=== PATIENT | male | born 1975 | race African-American/Black ===

== ENCOUNTER 2019-12-20 08:13 | Inpatient (IN) ==
[2019-12-20] MEDS ORDERED: DIPH/TET/ACEL PERT BOOSTER VACCINE 0.5 ML VIAL IM ONE (08:29)
[2019-12-20] MEDS ORDERED: HYDROmorphone 2 MG/1 ML VIAL IV STA (08:29)
[2019-12-20] MEDS ORDERED: LACTATED RINGERS 1,000 ML IV STA (08:29)
[2019-12-20] MEDS ORDERED: ONDANSETRON 4 MG/2 ML VIAL IV STA (08:29)
[2019-12-20 08:43] LABS: Apearance,Urine CLEAR (Clear); Basophils # 0.1 10*3/uL (0.0-0.2); Basophils % 0.7 % (0.0-0.8); Bilirubin,Urine Negative (Negative); Blood, Urine Moderate mg/dL (Negative); Eosinophils # 0.1 10*3/uL (0.0-0.87); Eosinophils % 0.8 % (0.00-10.9); Glucose,Urine (UA) >=500 mg/dL (Negative); Hematocrit 47.6 VOL% (42.0-52.0); Hemoglobin 15.4 GM/DL (14.0-18.0); Immature Granulocytes % 0.6 %; Immature Granulocytes Absolute 0.04 #; Ketones,Urine 20 mg/dL (Negative); Lymphocytes # 1.4 10*3/uL (1.4-4.0); Lymphocytes % 19.3 % (21.2-54.2); Mean Corpuscular HGB Conc 32.4 GM/DL (32-36); Mean Platelet Volume 10.6 FL (9.6-12.0); Monocytes % 10.2 % (1.7-12.7); Mucus,Urine Occasional /LPF (Occasional); Neutrophils % 68.4 % (38.7-73.9); Nitrite,Urine Negative (Negative); Platelet Count 168 T/CUMM (130-400); Protein,Urine 100 MG/DL; RBC,Urine 16 /HPF (0-4); Red Blood Count 5.35 MC/CUMM (3.8-5.5); Red Cell Distribution Width 13.2 % (9.3-17.3); Squamous Epithelial Cell,Urine Occasional /HPF (0-10); Urine Color Yellow (Yellow); Urine Specific Gravity 1.028 (1.001-1.035); WBC,Urine <1 /HPF (0-6); White Blood Count 7.2 T/CUMM (4-12)
[2019-12-20 08:45] LABS: INR 0.9; Partial Thromboplastin Time < 21.0 SECS (20.8-36.0)
[2019-12-20 08:49] LABS: ABG Base Excess -0.4 MMOL/L (-2.5-2.5); ABG HCO3 24.1 MMOL/L (20-26); ABG Oxygen Saturation 98.8 % (95-100); ABG TCO2 15.9 MMOL/L (23-27); Allen Test Positive
[2019-12-20 08:51] LABS: Barbiturates Screen,Urine Negative (Negative); Benzodiazepines Screen,Urine Negative (Negative); Cannabinoid Screen,Urine Negative (Negative); Opiate Screen,Urine Positive (Negative); Phencyclidine Screen,Urine Negative (Negative)
[2019-12-20 08:52] LABS: ABG PCO2 19.7 MM HG (35-48); ABG PH 7.591 (7.35-7.45)
[2019-12-20 08:54] LABS: Alanine Aminotransferase 52 U/L (16-61); Alkaline Phosphatase 72 U/L (45-117); Amylase 70 U/L (25-115); Aspartate Amino Transferase 70 U/L (0-37); Blood Urea Nitrogen 11 MG/DL (7-18); Estimated Glom Filtration Rate 107 ML/MIN; Glucose 250 MG/DL (74-106); Osmolality,Calculated 276.1 MOS/KG (273-304); Total Protein 7.9 G/DL (6.4-8.3)
[2019-12-20] MEDS ORDERED: propofoL 200 MG/20 ML VIAL IV ONE ×2 (09:23→19:03)
[2019-12-20] MEDS ORDERED: SODIUM CHLORIDE 0.9% 1,000 ML IV SCH (12:18)
[2019-12-20] MEDS ORDERED: MAGNESIUM HYDROXIDE SUSP 30 ML UDCUP PO PRN (12:18)
[2019-12-20] MEDS ORDERED: GLUCAGON 1 MG VIAL IM PRN (12:31)
[2019-12-20] MEDS ORDERED: DEXTROSE 10% 250 ML BAG IV PRN (12:31)
[2019-12-20] MEDS ORDERED: LACTATED RINGERS 1,000 ML IV SCH (13:00)
[2019-12-20 13:59] LABS: Albumin 3.5 G/DL (3.4-5.0); Bilirubin,Total 0.6 MG/DL (0.2-1.0); Calcium 8.6 MG/DL (8.5-10.1); Total Protein 6.7 G/DL (6.4-8.3)
[2019-12-20] MEDS ORDERED: BACITRACIN OINT 0.9 GM PACK TOP ONE (14:22)
[2019-12-20] MEDS ORDERED: ceFAZolin 2,000 MG in PREMIX 1 EACH IV ONE (15:08)
[2019-12-20] MEDS ORDERED: diphenhydrAMINE CAP 25 MG CAPSULE PO PRN (15:48)
[2019-12-20] MEDS ORDERED: ONDANSETRON 4 MG/2 ML VIAL IV PRN (15:48)
[2019-12-20] MEDS ORDERED: ceFAZolin 1,000 MG VIAL ONE (16:17)
[2019-12-20] MEDS ORDERED: SUFentanil 50 MCG/ML AMP ONE ×2 (16:20→19:04)
[2019-12-20] MEDS ORDERED: LIDOCAINE 2% 5 ML VIAL ONE (19:03)
[2019-12-20] MEDS ORDERED: MIDAZOLAM 2 MG/2 ML VIAL ONE (19:04)
[2019-12-20] MEDS ORDERED: DEXAMETHASONE 4 MG/1 ML VIAL ONE (19:04)
[2019-12-20] MEDS ORDERED: ONDANSETRON 4 MG/2 ML VIAL ONE (19:04)
[2019-12-20] MEDS ORDERED: ROCURONIUM 100 MG/10 ML VIAL IV ONE (19:05)
[2019-12-20] MEDS ORDERED: METOPROLOL TARTRATE 5 MG/5 ML VIAL IV ONE (19:05)
[2019-12-20] MEDS ORDERED: LACTATED RINGERS 2,000 ML IV ONE (19:05)
[2019-12-20] MEDS ORDERED: ESMOLOL 100 MG/10 ML VIAL IV ONE (19:05)
[2019-12-20] MEDS ORDERED: GLYCOPYRROLATE 0.4 MG/2 ML VIAL ONE (19:05)
[2019-12-20] MEDS ORDERED: NEOSTIGMINE 10 MG/10 ML VIAL ONE (19:05)
[2019-12-20] MEDS: LACTATED RINGERS 1,000 ML IV SCH (20:03)
[2019-12-20] MEDS: MORPHINE 4 MG/1 ML VIAL IV PRN (22:58)
[2019-12-20] MEDS: ceFAZolin 2,000 MG in PREMIX 1 EACH IV SCH (23:33)
[2019-12-21] MEDS: LACTATED RINGERS 1,000 ML IV SCH ×3 (04:16→17:40)
[2019-12-21] MEDS: MORPHINE 4 MG/1 ML VIAL IV PRN ×4 (04:50→13:27)
[2019-12-21 05:34] LABS: Basophils % 0.2 % (0.0-0.8); Hematocrit 40.7 VOL% (42.0-52.0); Hemoglobin 13.5 GM/DL (14.0-18.0); Immature Granulocytes % 0.5 %; Immature Granulocytes Absolute 0.06 #; Lymphocytes # 1.1 10*3/uL (1.4-4.0); Mean Corpuscular HGB Conc 33.2 GM/DL (32-36); Mean Corpuscular Volume 89.5 FL (87-102); Mean Platelet Volume 11.3 FL (9.6-12.0); Monocytes % 9.5 % (1.7-12.7); Neutrophils % 80.8 % (38.7-73.9); Platelet Count 189 T/CUMM (130-400); Red Blood Count 4.55 MC/CUMM (3.8-5.5); Red Cell Distribution Width 13.4 % (9.3-17.3); White Blood Count 11.8 T/CUMM (4-12)
[2019-12-21 05:56] LABS: Calcium 8.9 MG/DL (8.5-10.1); Osmolality,Calculated 275.1 MOS/KG (273-304)
[2019-12-21] MEDS: ceFAZolin 2,000 MG in PREMIX 1 EACH IV SCH (06:20)
[2019-12-21] MEDS: metFORMIN 500 MG TABLET PO SCH ×2 (08:41→20:31)
[2019-12-21] MEDS: LOSARTAN 50 MG TABLET PO SCH (08:42)
[2019-12-21] MEDS: INSULIN LISPRO 100 UNIT/ML SUBCUT SCH ×3 (08:43→19:00)
[2019-12-21] MEDS: hydrALAZINE 20 MG/1 ML VIAL IV PRN ×2 (08:46→13:40)
[2019-12-21] MEDS: FONDAPARINUX 2.5 MG/0.5 ML SYRINGE SUBCUT SCH (10:05)
[2019-12-21] MEDS: atenoloL 25 MG TABLET PO SCH ×2 (14:30→20:31)
[2019-12-21] MEDS ORDERED: MORPHINE 4 MG/1 ML VIAL IV PRN ×2 (16:20→16:25)
[2019-12-21] MEDS ORDERED: INSULIN GLARGINE 100 UNIT/ML SUBCUT SCH (21:00)
[2019-12-22 04:32] LABS: Basophils % 0.3 % (0.0-0.8); Eosinophils % 0.2 % (0.00-10.9); Hematocrit 39.4 VOL% (42.0-52.0); Hemoglobin 13.1 GM/DL (14.0-18.0); Immature Granulocytes % 0.6 %; Immature Granulocytes Absolute 0.07 #; Lymphocytes # 1.3 10*3/uL (1.4-4.0); Lymphocytes % 11.8 % (21.2-54.2); Mean Corpuscular HGB Conc 33.2 GM/DL (32-36); Mean Corpuscular Volume 88.9 FL (87-102); Mean Platelet Volume 11.1 FL (9.6-12.0); Monocytes % 13.2 % (1.7-12.7); Neutrophils % 73.9 % (38.7-73.9); Platelet Count 183 T/CUMM (130-400); Red Blood Count 4.43 MC/CUMM (3.8-5.5); Red Cell Distribution Width 13.2 % (9.3-17.3); White Blood Count 10.9 T/CUMM (4-12)
[2019-12-22 05:03] LABS: Calcium 8.7 MG/DL (8.5-10.1); Osmolality,Calculated 271.5 MOS/KG (273-304)
[2019-12-22] MEDS: LACTATED RINGERS 1,000 ML IV SCH (08:24)
[2019-12-22] MEDS ORDERED: INSULIN GLARGINE 100 UNIT/ML SUBCUT SCH ×2 (08:44→21:00)
[2019-12-22] MEDS: FONDAPARINUX 2.5 MG/0.5 ML SYRINGE SUBCUT SCH (09:09)
[2019-12-22] MEDS: INSULIN LISPRO 100 UNIT/ML SUBCUT SCH ×2 (09:09→12:54)
[2019-12-22] MEDS: LOSARTAN 50 MG TABLET PO SCH (09:10)
[2019-12-22] MEDS: atenoloL 25 MG TABLET PO SCH (09:10)
[2019-12-22] MEDS: metFORMIN 500 MG TABLET PO SCH (09:10)
[2019-12-22 12:35] VITALS: BP 141/86
== END 2019-12-22 14:38 | disposition home or self-care (01) | DRG 493 ==
LOC: EDUNIT# → EDBD → N.ED 08:13 → N.EDINP 10:30 → N.3E 10:41 → N.CC 18:59 → N.3E 12-21 11:12
PROVIDERS: ADMIT Orthopaedic Surgery; ATTEND Orthopaedic Surgery